=== PATIENT | female | born 1955 | race Caucasian/White ===

== ENCOUNTER → 2016-12-07 | Outpatient (CLI) | payer OTHER ==
--- NOTE | 2016-12-07 13:16 | CT ---
CT Scan of the Abdomen (Without Contrast) 1123 hours History: Gastroesophageal reflux disease. Known hernia. Left upper quadrant pain that has been get ting worse recently. (K 21.0, K 44.9, R 10.12, R 68.83) Technique: Axial computed tomographic images of the abdomen were obtained without IV contrast as requ ested. Oral contrast was administered. Imaging was acquired during Valsalva. Images were reviewed in multiple planes. Dose reduction techniques were utilized. CT Abdomen Findings: There is no significant hiatal hernia identified. Lung bases: Normal. Liver: Normal. Spleen: Normal. Gallbladder and Bile Ducts: Normal. Pancreas: Normal. Adrenals: Normal. Kidneys: No obstruction or solid masses. Abdominal Aorta: No aneurysm. Bowel Loops: There is a moderate amount of stool present within the colon. There are no significantl y dilated loops of bowel. No bowel obstruction, ascites, or significant retroperitoneal lymphadenopathy. Skeletal system: Vertebral body heights are well-maintained. There are no significant lytic or scler otic osseous lesions. Impression: 1. Moderate constipation. 2. No CT evidence of abscess or bowel obstruction.
== END ==
LOC: FIMAGING 10:59
PROVIDERS: ATTEND Family Medicine
DX: K59.00 Constipation, unspecified (principal); I10 Essential (primary) hypertension; K21.0 Gastro-esophageal reflux disease with esophagitis; K44.9 Diaphragmatic hernia without obstruction or gangrene

== ENCOUNTER → 2019-01-13 | Outpatient (CLI) | payer OTHER | LOC: FIMAGING 10:21 ==